=== PATIENT | female | born 1945 | race Caucasian/White ===

== ENCOUNTER 2023-06-15 15:15 | Emergency (ER) | payer MEDICARE, OTHER, SELFPAY ==
[2023-06-15 15:19] VITALS: BP 164/98
[2023-06-15 15:37] LABS: % Basophils 0.8 % (0-2); % Eosinophils 0.9 % (0-6); % Immature Granulocytes 0.2 % (0-0.5); % Lymphocytes 22.9 % (20.5-51.1); % Monocytes 3.9 % (1.7-9.3); % Neutrophils 71.3 % (42.2-75.2); Absolute Basophils 0.1 10^3/uL (0-0.2); Absolute Eosinophils 0.1 10^3/uL (0-0.7); Absolute Lymphocytes 2.1 10^3/uL (1.2-3.4); Absolute Monocytes 0.4 10^3/uL (0.1-0.6); Absolute Neutrophils 6.4 10^3/uL (1.4-6.5); Hematocrit 43.1 % (37.0-47.0); Hemoglobin 14.6 g/dL (12.0-16.0); Mean Corp Hgb Conc. 33.9 g/dL (33.0-37.0); Mean Corpuscular Hgb 28.3 pg (27.0-31.0); Mean Corpuscular Volume 83.7 fL (81.0-99.0); Mean Platelet Volume 10.7 fL (7.4-10.4); Nucleated Red Blood Cells % 0 %; Platelet Count 217 10^3/uL (130-400); Red Blood Cell Count 5.15 10^6/uL (4.20-5.40); Red Cell Dist. Width 12.8 % (11.5-14.5)
[2023-06-15 15:55] LABS: ALT (SGPT) 18 U/L (0-35); AST (SGOT) 30 U/L (14-36); Albumin 5.1 g/dl (3.5-5.0); Alkaline Phosphatase 71 U/L (38-126); Blood Urea Nitrogen 15 mg/dl (7-17); Calcium 10.4 mg/dl (8.4-10.2); Carbon Dioxide 25 mmol/L (22-30); Chloride 102 mmol/L (98-107); Glucose 118 mg/dl (70-99); Potassium 4.1 mmol/L (3.5-5.1); Sodium 138 mmol/L (135-145); Total Bilirubin 0.9 mg/dl (0.2-1.3); Total Protein 7.7 g/dl (6.3-8.2); eGFR > 60.00
--- NOTE | 2023-06-15 17:33 | ED.GENMED ---
History of Present Illness
General
Chief Complaint: Dizziness
Source: patient
Exam Limitations: none
Time Seen by Provider: 06/15/23 17:05
Nursing documentation reviewed up to this point in time: agreed with
Travel History
Have you had any contact with someone who has COVID-19?: No
Do you have any symptoms of coronavirus? Fever > 100 degrees, chills, cough, shortness of breath, sore throat, loss of taste or smell, muscle aches, or headache?: No
History of Present Illness
History of Present Illness:
Patient is a 77-year-old female who presents today for evaluation. She reports that she woke up this morning and had trouble focusing with her eyes that she reports everything was moving around. Worse with any type of position changes morning.
She states she has this intermittently in the morning but but usually resolves after an hour. She was diagnosed with benign positional vertigo 8 years ago at [facility] in the ER after having similar episode. She had CAT scan and MRI at
that time. She did have meclizine at home and took 1. She feels slightly better but still symptomatic. She is nauseous but has not vomited. She does have a headache and only reports that she does not get headaches.
Denies any recent trauma chiropractic manipulation .
Review of Systems
Review of Systems
Allergies reviewed?: Yes
All Other Systems: ROS reviewed and negative except as documented in HPI and ROS
Constitutional: Reports no symptoms; Denies fever, fatigue or chills
Respiratory: Reports no symptoms
Cardiac: Reports no symptoms
ABD/GI: Reports nausea; Denies vomiting
Musculoskeletal: Reports no symptoms
Skin: Reports no symptoms
Neurological: Reports no symptoms and other ('everything moving around ' )
Psychiatric: Reports no symptoms
Phy Exam
General Physical Exam
General Presentation: no apparent distress
General age: appears stated age
General Skin: warm and dry
General Habitus: normal
General Mental: alert
General Hydration: appears well hydrated
Cardiovascular Exam
Cardiovascular Exam: regular rate/rhythm, no murmur and normal peripheral pulses
Pulmonary Exam
Pulmonary Exam: lungs clear and no respiratory distress
Neurological Exam
Neurological Exam: alert, oriented x3, no motor deficits and no sensory deficits
Cerebellar
Cerebellar Function: normal finger to nose
Musculoskeletal Exam
Musculoskeletal Exam: full ROM
Skin Exam
Skin Exam: normal color and warm/dry
Psychiatric Exam
Psychiatric Exam: normal mood/affect
Course
Orders/Labs/Results
Orders:
Orders
06/15/23 15:22
Electrocardiogram (*1) Urgent
Reason for Study: Vertigo / Dizzy
EKG- Treatment ONCE
06/15/23 15:29
Complete Blood Count/With Diff Urgent
Comprehensive Metabolic Panel Urgent
06/15/23 17:45
Lorazepam [Ativan] 0.5 mg IV NOW STA
06/15/23 17:46
0.9% Sodium Chloride 1000 ml [Nss] 1,000 ml IV BOLUS
06/15/23 18:29
CT Head W/o Iv Contrast Urgent
Comment:
Reason For Exam: vertigo
Abnormal Lab Results
06/15/23
15:29
MPV 10.7 H fL
(7.4-10.4)
Glucose 118 H mg/dl
(70-99)
Calcium 10.4 H mg/dl
(8.4-10.2)
Albumin 5.1 H g/dl
(3.5-5.0)
06/15/23 15:29
06/15/23 15:29
Vital Signs
Initial and Last Documented VS:
Initial Vital Signs
Temp Pulse Resp BP Pulse Ox
98.5 F 78 18 164/98 97
06/15/23 15:19 06/15/23 15:19 06/15/23 15:19 06/15/23 15:19 06/15/23 15:19
Last Documented Vital Signs
Temp Pulse Resp BP Pulse Ox
98 F 79 18 172/77 97
06/15/23 19:17 06/15/23 19:17 06/15/23 19:17 06/15/23 19:17 06/15/23 19:17
MDM/Problems Addressed
Differential Diagnosis Includes:
not limited to: vertigo
MDM/Problems Addressed:
Symptoms are consistent with vertigo. Patient feels better here in the ER after receiving small dose of Ativan. She has had vertigo in the past and had meclizine at home. She simply gets this in the morning which tends to resolve but this did
not. She is in no acute distress no recent trauma chiropractic manipulation normal neurologic exam here CT head negative. Patient was monitored here feeling much better ambulatory with a steady gait will plan for discharge home. Patient has
meclizine at home. d/c close outpt fu with pcp
Chronic conditions affecting care:
vertigo
*Radiology
Radiology exam reviewed: radiology read reviewed
*Pulse Oximetry
Patient hypoxic: no
*EKG
Interpreted by ED Provider?: Yes
Heart Rate: 75
Rate: normal
Rhythm: sinus
Ischemia: no ischemia
*Critical Care Note
Total Time (30-74mins, 75-104mins- exclusive of procedures): Not Applicable
ED Attending Note
-
Portions of this chart may have been created with voice recognition software.� Occasional wrong word or��sound alike� substitutions may have occurred due to the inherent limitations of voice recognition software.
Discharge Plan
Departure
Patient Disposition: Home (Routine Discharge)
Date of Disposition: 06/15/23
Time of Disposition: 20:44
Patient with high blood pressure during this ER visit?: Yes
Covid-19: Not Applicable
Discharge Problem:
Vertigo
Instructions: Vertigo (a Type of Dizziness) (DC)
Prescriptions:
No Action
diltiazem HCl [Cardizem] 120 mg Tablet
120 mg PO QHS
candesartan 32 mg Tablet
32 mg PO DAILY
Patient Comments:
32-12.5 combination medication per pt.
Rx Instructions:
takes 1/2 tablet
escitalopram oxalate [Lexapro] 20 mg Tablet
20 mg PO DAILY
rosuvastatin 5 mg Tablet
5 mg PO DAILY
Referrals:
Sebastian Salazar MD [Active] -
Alejandro Irving DO [Family Provider] -
Activity Restrictions/Additional Instructions:
You may take your meclizine as previously recommended. Follow-up with your family doctor the next several days as well as neurology.
return if any worsening of symptoms.
Interventions
Interventions:
*Risk Screen - Suicide Last Done: 06/15/23 15:19
*General Assessment Last Done: 06/15/23 15:19
*Neglect/Abuse Screening Last Done: 06/15/23 15:19
ED- Fall Risk Assessment Last Done: 06/15/23 16:41
*ED COVID-19 Vaccine History Last Done: 06/15/23 15:19
ED- Neurological Assessment Last Done: 06/15/23 16:41
ED Swallowing Screen Last Done: 06/15/23 16:41
Discharge Date and Time
Print Language: MEXICAN
[2023-06-15] MEDS: ATIVAN 0.5 MG IV (17:58)
[2023-06-15] MEDS: NSS 1000 IV (17:59)
[2023-06-15 19:17] VITALS: BP 172/77
[2023-06-15] MEDS: TYLENOL 500 MG PO (20:40)
[2023-06-15 20:48] VITALS: BP 170/71
== END 2023-06-15 20:56 | disposition home or self-care (01) ==
LOC: EMR 15:15
PROVIDERS: Emergency Medicine; EMERGENCY PHYSICIAN Emergency Medicine; FAMILY PHYSICIAN Family Medicine Adult Medicine
DX: R42 Dizziness and giddiness (principal); R11.0 Nausea; R51.9 Headache, unspecified
CPT/HCPCS: 99285; 96374; 96361; 70450; 80053; 85025; 93005

== ENCOUNTER 2024-06-06 16:20 | Emergency (ER) | payer MEDICARE, OTHER, SELFPAY ==
[2024-06-06 16:26] VITALS: BP 175/91
[2024-06-06 16:47] LABS: % Basophils 0.7 % (0-2); % Eosinophils 1.3 % (0-6); % Immature Granulocytes 0.2 % (0-0.5); % Lymphocytes 21.4 % (20.5-51.1); % Monocytes 5.8 % (1.7-9.3); % Neutrophils 70.6 % (42.2-75.2); Absolute Basophils 0.1 10^3/uL (0-0.2); Absolute Eosinophils 0.1 10^3/uL (0-0.7); Absolute Lymphocytes 2.2 10^3/uL (1.2-3.4); Absolute Monocytes 0.6 10^3/uL (0.1-0.6); Absolute Neutrophils 7.4 10^3/uL (1.4-6.5); Hematocrit 41.8 % (37.0-47.0); Hemoglobin 14.1 g/dL (12.0-16.0); Mean Corp Hgb Conc. 33.7 g/dL (33.0-37.0); Mean Platelet Volume 10.5 fL (7.4-10.4); Nucleated Red Blood Cells % 0 %; Platelet Count 275 10^3/uL (130-400); Red Blood Cell Count 4.86 10^6/uL (4.20-5.40); Red Cell Dist. Width 12.8 % (11.5-14.5); White Blood Cell Count 10.4 10^3/uL (4.8-10.8)
[2024-06-06 17:00] LABS: ALT (SGPT) 21 U/L (0-35); AST (SGOT) 25 U/L (14-36); Albumin 5.1 g/dl (3.5-5.0); Alkaline Phosphatase 67 U/L (38-126); Blood Urea Nitrogen 13 mg/dl (7-17); Calcium 9.8 mg/dl (8.4-10.2); Carbon Dioxide 27 mmol/L (22-30); Chloride 95 mmol/L (98-107); Glucose 108 mg/dl (70-99); Potassium 3.9 mmol/L (3.5-5.1); Sodium 132 mmol/L (135-145); Total Bilirubin 0.9 mg/dl (0.2-1.3); Total Protein 7.4 g/dl (6.3-8.2); eGFR > 60.00
[2024-06-06 17:05] LABS: Urine Albumin Negative (Neg - Trace); Urine Bilirubin Negative (Negative); Urine Glucose Negative (Negative); Urine Ketone Negative (Negative); Urine Leukocyte Negative (Negative); Urine Nitrite Negative (Negative); Urine Occult Blood 2+ (Negative); Urine Specific Gravity 1.005 (<1.030); Urine Urobilinogen Negative (Neg - 1+)
[2024-06-06 17:06] LABS: Urine Character Clear (Clear); Urine Color Straw
[2024-06-06 17:23] LABS: Urine Red Blood Cell 0-2 /HPF (0-2); Urine Squamous Cell 0-2 /LPF (Few); Urine White Cell 0-2 /HPF (0-5)
[2024-06-06 18:15] VITALS: BP 178/88
--- NOTE | 2024-06-06 19:41 | ED.GENMED ---
History of Present Illness
General
Chief Complaint: Urinary Symptoms
Time Seen by Provider: 06/06/24 19:06
History of Present Illness
History of Present Illness:
78-year-old female with history of anxiety, hypertension, and depression presenting to the emergency department for concern of urinary retention. Patient reports that she had a vaginal 'cyst', went to her cipher expert yesterday and had it drained.
She notes that she did have an internal exam at that time, noted to be unremarkable. Since return from the doctor, has had lower abdominal pressure and burning sensation. Also notes some rectal pressure. She notes that she did not urinate last
night and when she woke up this morning, had not urinated all. She continued to orally hydrate, with no urination, which prompted her to come to the hospital. Denies significant pain to the abdomen, however continues to note a burning discomfort.
Denies any fever, chest pain, difficulty breathing. Upon arrival to the hospital, notes that she has since urinated 3 times. Denies issues with retention in the past. Denies additional medical complaints
Phy Exam
Physical Exam
Physical Exam:
General: Well-appearing, no clinical signs of dehydration, nontoxic and in no acute distress
HEENT: protecting airway
Neck: appears supple
CV: Normal heart rate, regular rhythm
Resp: No accessory muscle use, no increased work of breathing, lungs clear to auscultation bilaterally
Abd: Soft and non-distended, no tenderness to palpation
Extremities: No deformities, no swelling
Neuro: alert, no focal neurologic deficit
: No skin breakdown, no external wounds. Area of prior cyst drainage at the left inferior labia majora. No erythema or significant pain on palpation
Rectal: deferred
Psych: Normal affect
Skin: Intact
Course
Orders/Labs/Results
Orders:
Orders
06/06/24 16:26
Urinalysis Reflex To Culture Urgent
Date Specimen was Collected: 06/06/24
Time Specimen was Collected: 16:22
Urine Microscopic Reflex Cult Urgent
06/06/24 16:36
Complete Blood Count/With Diff Urgent
Comprehensive Metabolic Panel Urgent
06/06/24 19:42
Ciprofloxacin HCl [Cipro] 500 mg PO ONCE ONE
Abnormal Lab Results
06/06/24 06/06/24
16:26 16:36
MPV 10.5 H fL
(7.4-10.4)
Absolute Neuts (auto) 7.4 H 10^3/uL
(1.4-6.5)
Sodium 132 L mmol/L
(135-145)
Chloride 95 L mmol/L
(98-107)
Glucose 108 H mg/dl
(70-99)
Albumin 5.1 H g/dl
(3.5-5.0)
Ur Occult Blood Reflex 2+ A
(Negative)
06/06/24 16:36
06/06/24 16:36
Vital Signs
Initial and Last Documented VS:
Initial Vital Signs
Temp Pulse Resp BP Pulse Ox
98.3 F 88 18 175/91 99
06/06/24 16:26 06/06/24 16:26 06/06/24 16:26 06/06/24 16:26 06/06/24 16:26
Last Documented Vital Signs
Temp Pulse Resp BP Pulse Ox
98.3 F 77 18 178/88 99
06/06/24 16:26 06/06/24 18:15 06/06/24 16:26 06/06/24 18:15 06/06/24 18:15
MDM/Problems Addressed
MDM/Problems Addressed:
78-year-old female with history of anxiety, hypertension, and depression presenting to the emergency department with concern of urinary retention after going to the cipher expert yesterday. Vital signs on arrival are significant for hypertension.
On exam patient is resting comfortably, no acute distress or discomfort. No reproducible tenderness to the abdomen, soft nondistended. External examination of the vagina is normal in appearance. Patient urinated 3 times here, postvoid residual 6
mL. Patient screening laboratory analysis prior to my assessment, unremarkable, no leukocytosis, normal renal function. Urinalysis is also unremarkable, however patient continues to report burning discomfort and pressure. Given symptoms after
recent examination, patient may be developing urinary tract infection. Will start patient on short course of antibiotics. Patient is requesting ciprofloxacin. Otherwise no indication for advanced imaging. Encouraged continued oral hydration,
monitoring of urine output. Feel stable for discharge with outpatient follow-up. Return precautions discussed and patient verbalized understanding
*Critical Care Note
Total Time (30-74mins, 75-104mins- exclusive of procedures): Not Applicable
ED Attending Note
-
Portions of this chart may have been created with voice recognition software.� Occasional wrong word or��sound alike� substitutions may have occurred due to the inherent limitations of voice recognition software.
Discharge Plan
Departure
Patient Disposition: Home (Routine Discharge)
Date of Disposition: 06/06/24
Time of Disposition: 19:49
Patient with high blood pressure during this ER visit?: Yes
Condition: Good
Discharge Problem:
Urinary symptom or sign
Instructions: Urinary tract infections in adults, BLOOD PRESSURE
Prescriptions:
New
ciprofloxacin HCl [Cipro] 250 mg tablet
250 mg PO BID 3 Days Qty: 6 0RF
No Action
diltiazem HCl [Cardizem] 120 mg Tablet
120 mg PO QHS
candesartan 32 mg Tablet
32 mg PO DAILY
Patient Comments:
32-12.5 combination medication per pt.
Rx Instructions:
takes 1/2 tablet
escitalopram oxalate [Lexapro] 20 mg Tablet
20 mg PO DAILY
rosuvastatin 5 mg Tablet
5 mg PO DAILY
Referrals:
Alejandro Irving DO [Family Provider] -
Activity Restrictions/Additional Instructions:
You were seen in the emergency department for urinary complaint
You were found to have normal urinalysis and laboratory analysis. You were started on an antibiotic secondary to your symptoms.
Please follow-up closely with your primary care physician.
Return to the emergency department for any worsening of your symptoms, or any development of chest pain, difficulty breathing, abdominal pain with persistent vomiting and inability to tolerate food or liquid by mouth (concern for dehydration),
weakness, headache or confusion, fever greater than 100.4, or any additional symptoms that are concerning to you.
Thank you for choosing [facility].
Interventions
Interventions:
*Risk Screen - Suicide Last Done: 06/06/24 16:26
*General Assessment Last Done: 06/06/24 16:26
*Neglect/Abuse Screening Last Done: 06/06/24 16:26
*ED- Fall Risk Assessment Last Done: 06/06/24 18:02
*ED COVID-19 Vaccine History Last Done: 06/06/24 18:02
ED-Female Genitourinary Assessment Last Done: 06/06/24 18:15
Discharge Date and Time
Print Language: ISRAELI
[2024-06-06] MEDS: CIPRO 500 MG PO (19:47)
[2024-06-06 20:30] VITALS: BP 107/92
== END 2024-06-06 20:42 | disposition home or self-care (01) ==
LOC: EMR 16:20
PROVIDERS: Emergency Medicine; EMERGENCY PHYSICIAN Student in an Organized Health Care Education/Training Program; FAMILY PHYSICIAN Family Medicine Adult Medicine
DX: R33.9 Retention of urine, unspecified (principal); F41.8 Other specified anxiety disorders; I10 Essential (primary) hypertension; N89.8 Other specified noninflammatory disorders of vagina
CPT/HCPCS: 99283; 80053; 81003; 81015; 85025

== ENCOUNTER 2025-01-29 12:15 | Emergency (ER) | payer MEDICARE, OTHER, SELFPAY ==
[2025-01-29 12:19] VITALS: BP 196/105
[2025-01-29 13:22] VITALS: BMI 20.7
--- NOTE | 2025-01-29 13:30 | EDRN ---
Received patient sitting in bed crying and saying 'I just can't live like this anymore. Nothing is helping me.' is with patient and stated that the patient has been in treatment for years and nothing seems to help her. Patient stated 'I used
to work at [employer]. I used to be a person. I'm not that anymore. I don't want to live like this anymore.' Patient stated that she wants to hurt herself can't do it.
[2025-01-29 13:34] LABS: Urine Character Clear (Clear)
[2025-01-29 13:42] LABS: Urine White Cell 0-2 /HPF (0-5)
--- NOTE | 2025-01-29 13:43 | ED.GENMED ---
History of Present Illness
General
Chief Complaint: Crisis Evaluation
Source: patient and spouse
Exam Limitations: none
Time Seen by Provider: 01/29/25 13:06
History of Present Illness
History of Present Illness:
79-year-old female long history of depression and anxiety. Has received multiple therapies in the past including ECT treatments. She has chronic symptoms and at times apparently has expressed the lack of desire to live however this morning when
talking to her psychiatrist her expression and intent were much worse. She apparently clearly had an intent. She thought denies intent currently but admits she does not want to live this way. She has had a full medical workup in the past.
Past History
Past History
ED Past Medical History: HTN
ED Past Surgical History: Gynecological and Other (Partial thyroidectomy)
Review of Systems
Review of Systems
All Other Systems: Not applicable
Constitutional: Denies fever
Respiratory: Reports no symptoms
Cardiac: Reports no symptoms
Phy Exam
Physical Exam
Physical Exam:
GENERAL: Alert and oriented in no apparent distress
EYE: Orbits normal.
NECK: Supple
CARDIAC: Regular rate and rhythm without any obvious murmurs.
LUNGS: Clear breath sounds,normal
ABDOMEN: Soft, without focal tenderness or distention
NEUROLOGICAL: Alert and oriented , grossly non-focal
SKIN: Warm and dry
PSYCH: Normal and appropriate interaction.
Course
Orders/Labs/Results
Orders:
Orders
01/29/25 12:23
1:1 Observation - Suicide/ Violent Behavior As Directed
01/29/25 13:17
Crisis Consult Urgent
Reason for Consult: depression/ si
01/29/25 13:24
Fentanyl, Urine Urgent
Urinalysis Reflex To Culture Urgent
Date Specimen was Collected: 01/29/25
Time Specimen was Collected: 13:00
Urine Drug Abuse Screen Urgent
Date Specimen was Collected: 01/29/25
Time Specimen was Collected: 13:00
Urine Microscopic Reflex Cult Urgent
Abnormal Lab Results
01/29/25
13:24
Ur Occult Blood Reflex 1+ A
(Negative)
Urine RBC 3-6 A /HPF
(0-2)
Urine Bacteria (Reflex) Few A
(Negative)
Urine Albumin (Reflex) 1+ A
(Neg - Trace)
U Benzodiazepines Scrn Positive H
(Negative)
Vital Signs
Initial and Last Documented VS:
Initial Vital Signs
Pulse Resp BP Pulse Ox
105 15 196/105 100
01/29/25 12:19 01/29/25 12:19 01/29/25 12:19 01/29/25 12:19
Last Documented Vital Signs
Temp Pulse Resp BP Pulse Ox
98.1 F 87 18 157/95 100
01/29/25 18:15 01/29/25 18:15 01/29/25 18:15 01/29/25 18:15 01/29/25 18:15
MDM/Problems Addressed
Differential Diagnosis Includes:
Discussed with the patient's primary psychiatrist and his psychiatrist that was heard the message. She, who is very knowledgeable, was very concerned with her intent. Clinically and medically I do not find an acute medical issue. Will refer to
crisis.
*Pulse Oximetry
SaO2: 100
Oxygen Mode of Delivery: Room air
Patient hypoxic: no
*Critical Care Note
Total Time (30-74mins, 75-104mins- exclusive of procedures): Not Applicable
Update Note
Update Note:
Condition was done by patient psychiatrist. However telepsych reversed the 302. and patient are very comfortable being home. She has no current suicidal plan or intent. She will be discharged to close follow-up
I did leave a message to her primary psychiatrist on her line to inform her of the
ED Attending Note
-
Portions of this chart may have been created with voice recognition software.� Occasional wrong word or��sound alike� substitutions may have occurred due to the inherent limitations of voice recognition software.
Discharge Plan
Departure
Patient Disposition: Home (Routine Discharge)
Date of Disposition: 01/29/25
Time of Disposition: 17:39
Patient with high blood pressure during this ER visit?: Yes
Discharge Problem:
Depression/suicidal ideation
Instructions: Depression, Adult (DC), BLOOD PRESSURE
Prescriptions:
No Action
diltiazem HCl [Cardizem] 120 mg Tablet
120 mg PO QHS
candesartan 32 mg Tablet
32 mg PO DAILY
Patient Comments:
32-12.5 combination medication per pt.
Rx Instructions:
takes 1/2 tablet
escitalopram oxalate [Lexapro] 20 mg Tablet
20 mg PO DAILY
rosuvastatin 5 mg Tablet
5 mg PO DAILY
ciprofloxacin HCl [Cipro] 250 mg tablet
250 mg PO BID 3 Days Qty: 6 0RF
Referrals:
Alejandro Irving DO [Family Provider, Family Practice]
Activity Restrictions/Additional Instructions:
Follow-up closely with your physicians next week
However, if you feel worse more depressed acutely suicidal please return immediately for reevaluation
Interventions
Interventions:
*General Assessment Last Done: 01/29/25 12:19
*Neglect/Abuse Screening Last Done: 01/29/25 12:19
*ED COVID-19 Vaccine History Last Done: 01/29/25 13:35
*ED Influenza Vaccine History Last Done: 01/29/25 12:19
[facility] Risk Assessment Tool Last Done: 01/29/25 13:30
*Risk Screen - Suicide (C-SSRS) Last Done: 01/29/25 12:19
*Nursing Disposition Last Done: 01/29/25 18:15
ED-Psychological Assessment Last Done: 01/29/25 13:22
Discharge Date and Time
Discharge Date/Time: 01/29/25 18:16
Print Language: ARMENIAN
--- NOTE | 2025-01-29 18:14 | EDRN ---
Reviewed discharge instructions with patient. Verbalized understanding. Ambulated with steady gait to the lobby.
[2025-01-29 18:15] VITALS: BP 157/95
== END 2025-01-29 18:16 | disposition home or self-care (01) ==
LOC: EMR 12:15
PROVIDERS: Student in an Organized Health Care Education/Training Program; EMERGENCY PHYSICIAN Emergency Medicine; FAMILY PHYSICIAN Family Medicine Adult Medicine
DX: R45.851 Suicidal ideations (principal); F41.8 Other specified anxiety disorders; I10 Essential (primary) hypertension; F19.10 Other psychoactive substance abuse, uncomplicated
CPT/HCPCS: 99283; 80306; 80307; 81003; 81015